=== PATIENT | male | born 1990 | race Caucasian/White ===

== ENCOUNTER 2019-07-08 10:09 | Inpatient (IN) | payer OTHER ==
[~2019-07-08] VITALS: Ht 182.9 cm; Wt 94.3 kg
[2019-07-08] MEDS ORDERED: SYNTHROID88 MCG (10:28)
== END 2019-07-10 09:13 | disposition home or self-care (01) | DRG 342 ==
LOC: ER 10:09 → SEC-K 15:31 → SURG 15:31 → O/R 19:00 → SURG 21:35
PROVIDERS: ADMIT Surgery
PROC: BW21Y0Z Computerized Tomography (CT Scan) of Abdomen and Pelvis using Other Contrast, Unenhanced and Enhanced (ICD-10-PCS; 2019-07-08)
PROC: 0DTJ4ZZ Resection of Appendix, Percutaneous Endoscopic Approach (ICD-10-PCS; principal; 2019-07-08 17:00)
DX: K35.890 Other acute appendicitis without perforation or gangrene (principal); D68.0 Von Willebrand disease; E03.8 Other specified hypothyroidism; E11.9 Type 2 diabetes mellitus without complications; Z79.4 Long term (current) use of insulin

== ENCOUNTER 2019-09-27 08:06 | Emergency (ER) | payer OTHER ==
[~2019-09-27] VITALS: Ht 182.9 cm; Wt 90.7 kg
== END 2019-09-27 14:45 | disposition home or self-care (01) ==
LOC: ER 08:06
DX: I88.8 Other nonspecific lymphadenitis (principal); R10.84 Generalized abdominal pain

== ENCOUNTER → 2019-09-27 | Emergency (ER) | payer OTHER ==
[~2019-09-27] MED LIST: SYNTHROID88 MCG
== END | disposition left against medical advice (07) ==
LOC: ER 03:35
DX: Z53.20 Procedure and treatment not carried out because of patient's decision for unspecified reasons (principal)